=== PATIENT | male | born 1955 | race American Indian/Alaskan Native ===

== ENCOUNTER 2017-08-04 04:12 | Inpatient (IN) | payer SELFPAY ==
[2017-08-04] MEDS ORDERED: ASPIRIN PO ONE (05:19)
[2017-08-04 06:03] LABS: Basophils % (Auto) 0.6 % (0.0-1.8); Eosinophils # (Auto) 0.2 K/mm3 (0.0-0.4); Eosinophils % (Auto) 4.7 % (0.0-4.3); Hematocrit 43.1 % (30.3-42.9); Hemoglobin 13.7 gm/dl (10.1-14.3); Lymphocytes % (Auto) 40.9 % (13.4-35.0); Mean Corpuscular HGB Conc 32 % (30-34); Mean Corpuscular Hemoglobin 27 pg (28-32); Mean Corpuscular Volume 85 fl (79-97); Monocytes # (Auto) 0.5 K/mm3 (0.0-0.8); Monocytes % (Auto) 9.3 % (0.0-7.3); Platelet Count 242 K/mm3 (140-440); Red Blood Count 5.05 M/mm3 (3.65-5.03); Red Cell Distribution Width 14.2 % (13.2-15.2)
[2017-08-04 06:12] LABS: BUN/Creatinine Ratio 17; Blood Urea Nitrogen 15 mg/dL (7-17); Calcium 9.4 mg/dL (8.4-10.2); Hemolysis Index 35
--- NOTE | 2017-08-04 10:31 | XRay Report ---
AP CHEST: HISTORY: chest pain AP view of the chest demonstrates a normal mediastinal and cardiac contour with clear lungs and normal bony and soft tissue structures. IMPRESSION: Unremarkable AP chest.
--- NOTE | 2017-08-04 10:55 | Emergency Department Report ---
ED Chest Pain HPI - General Chief Complaint: Chest Pain Stated Complaint: CP Time Seen by Provider: 08/04/17 10:06 Source: patient Mode of arrival: Ambulatory Limitations: No Limitations - History of Present Illness Initial Comments: 61-year-old male presents to the emergency department with complaint of some intermittent left-sided chest pains have been going on for the past 6-7 months. He denies any shortness of breath, nausea, vomiting, back pain or diaphoresis. He has a past medical history of hypertension. He also has history of seizures but has not had one in 2 years and does not appear to be on any medications for them. He has a primary care physician but cannot currently remember the name. He did not take anything for his symptoms prior to presentation. Currently he is asymptomatic but says that it occurs intermittently and sometimes it will "waking from sleep." No recent travel or sick contacts at home. No known aggravating or alleviating factors. He denies any tobacco or illicit drug use. - Related Data Home Medications Medication Instructions Recorded Confirmed Last Taken Aspirin [Aspirin BABY CHEW TAB] 81 mg PO QDAY 08/04/17 08/04/17 08/03/17 Ergocalciferol (Vitamin D2) 2,000 unit PO DAILY 08/04/17 08/04/17 08/03/17 [Vitamin D2] Losartan Potassium [Cozaar] 50 mg PO DAILY 08/04/17 08/04/17 08/03/17 [place]-3 Fatty Acids/Fish Oil [Fish 1 each PO DAILY 08/04/17 08/04/17 08/03/17 Oil] lamoTRIgine [LaMICtal] 100 mg PO BID 08/04/17 08/04/17 08/03/17 Allergies Allergy/AdvReac Type Severity Reaction Status Date / Time No Known Allergies Allergy Verified 08/04/17 10:45 Heart Score - HEART Score History: Slightly suspicious EKG: Non-specific Age: 45-65 Risk factors: 1-2 risk factors Troponin: < normal limit HEART Score: 3 - Critical Actions Critical Actions: 0-3 pts:0.9-1.7%risk of adverse cardiac event.Candidate for discharge ED Review of Systems ROS: Stated complaint: CP Other details as noted in HPI Comment: All other systems reviewed and negative Constitutional: denies: chills, fever Eyes: denies: eye pain, eye discharge, vision change ENT: denies: ear pain, throat pain Respiratory: denies: cough, shortness of breath, wheezing Cardiovascular: chest pain. denies: palpitations Gastrointestinal: denies: abdominal pain, nausea, diarrhea Genitourinary: denies: urgency, dysuria Musculoskeletal: denies: back pain, joint swelling, arthralgia Skin: denies: rash, lesions Neurological: denies: headache, weakness, paresthesias ED Past Medical Hx - Past Medical History Previous Medical History?: Yes Hx Hypertension: Yes Hx Seizures: Yes (last seizure 2014) - Surgical History Past Surgical History?: No - Social History Smoking Status: Never Smoker Substance Use Type: None - Medications Home Medications: Home Medications Medication Instructions Recorded Confirmed Last Taken Type Aspirin [Aspirin BABY CHEW TAB] 81 mg PO QDAY 08/04/17 08/04/17 08/03/17 History Ergocalciferol (Vitamin D2) 2,000 unit PO DAILY 08/04/17 08/04/17 08/03/17 History [Vitamin D2] Losartan Potassium [Cozaar] 50 mg PO DAILY 08/04/17 08/04/17 08/03/17 History [place]-3 Fatty Acids/Fish Oil [Fish 1 each PO DAILY 08/04/17 08/04/17 08/03/17 History Oil] lamoTRIgine [LaMICtal] 100 mg PO BID 08/04/17 08/04/17 08/03/17 History ED Physical Exam - General Limitations: No Limitations - Other Other exam information: GENERAL: The patient is well-developed well-nourished. HENT: Normocephalic. Atraumatic. Patient has moist mucous membranes. EYES: Extraocular motions are intact. Pupils equal reactive to light bilaterally. NECK: Supple. Trachea is midline. CHEST/LUNGS: Clear to auscultation. Chest pain is not reproducible to palpation of the chest wall. There is no respiratory distress noted. HEART/CARDIOVASCULAR: Regular. There is no tachycardia. There is no murmur. ABDOMEN: Abdomen is soft, nontender. Patient has normal bowel sounds. There is no abdominal distention. SKIN: Skin is warm and dry. NEURO: The patient is awake, alert, and oriented. The patient is cooperative. The patient has no focal neurologic deficits. The patient has normal speech. MUSCULOSKELETAL: No tenderness to palpation or deformity. Full range of motion. ED Course Vital Signs 08/04/17 08/04/17 08/04/17 05:12 10:07 14:06 Temperature 98.5 F Pulse Rate 69 56 L 70 Respiratory 20 16 16 Rate Blood Pressure 148/91 Blood Pressure 146/56 153/92 [Left] O2 Sat by Pulse 97 96 100 Oximetry WALDO score - Wal[place] Score Age > 65: (0) No Aspirin use within the Past 7 Days: (0) No 3 or more CAD Risk Factors: (0) No 2 or more Angina events in past 24 hrs: (1) Yes Known CAD with more than 50% Stenosis: (0) No Elevated Cardiac Markers: (0) No ST Deviation Greater than 0.5mm: (0) No WALDO Score: 1 ED Medical Decision Making - Lab Data Result diagrams: 08/04/17 05:37 08/04/17 05:37 - EKG Data -: EKG Interpreted by Me EKG shows normal: sinus rhythm, axis, intervals, QRS complexes (LVH, early repolarization), ST-T waves Rate: normal - EKG Data When compared to previous EKG there are: previous EKG unavailable Interpretation: other (sinus rhythm, LVH, early repolarization) - Radiology Data Radiology results: image reviewed interpreted by me: Chest x-ray does not show any acute process. There are no pleural effusions, obvious pneumonia and there is no pneumothorax. - Medical Decision Making Patient presents with some left-sided chest pain that has been going on for the past few days but is more of an acute on chronic condition. EKG is not showing any obvious ST elevation MD but it does show some LVH with some repolarization abnormalities. Negative troponins 2 thus far. Chest x-ray does not show any acute process. The patient does not appear to have ever had a full cardiac workup including a stress test and for this reason I plan to admit him to the hospital for further evaluation and treatment. He has been accepted for admission by the hospitalist, Dr. Olson - Differential Diagnosis MD, PE, Costochondritis, Pneumonia Critical Care Time: No Critical care attestation.: If time is entered above; I have spent that time in minutes in the direct care of this critically ill patient, excluding procedure time. ED Disposition Clinical Impression: Chest pain Qualifiers: Chest pain type: unspecified Qualified Code(s): R07.9 - Chest pain, unspecified Hypertension Qualifiers: Hypertension type: essential hypertension Qualified Code(s): I10 - Essential ( primary) hypertension Disposition: DC-09 OP ADMIT IP TO THIS HOSP Is pt being admited?: Yes Condition: Stable Time of Disposition: 14:58
--- NOTE | 2017-08-04 13:42 | Consultation ---
History of Present Illness Consult date: 08/04/17 Requesting physician: DAVE CARL Consult reason: chest pain History of present illness: The pt is a 61-year-old male with a past medical history significant for seizures and HTN. He is previously unknown to our practice. He presented with complaints of chest pain for the past 3-4 weeks. He describes his chest pain as a left-sided, nonexertional, aching pain which sometimes radiates into his upper back. The pain has no clear aggravating or alleviating factors. He denies any fever, chills, cough, SOB, palpitations, n/v, diaphoresis, dizziness or syncope. He has a primary care physician but cannot currently remember the name. He denies any prior cardiac evaluation. 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 He denies any tobacco or illicit drug use. Past History Past Medical History: hypertension, seizures Past Surgical History: hernia repair Social history: denies: smoking, alcohol abuse, prescription drug abuse Family history: no significant family history Medications and Allergies Allergies Allergy/AdvReac Type Severity Reaction Status Date / Time No Known Allergies Allergy Verified 08/04/17 10:45 Home Medications Medication Instructions Recorded Confirmed Last Taken Type Aspirin [Aspirin BABY CHEW TAB] 81 mg PO QDAY 08/04/17 08/04/17 08/03/17 History Ergocalciferol (Vitamin D2) 2,000 unit PO DAILY 08/04/17 08/04/17 08/03/17 History [Vitamin D2] Losartan Potassium [Cozaar] 50 mg PO DAILY 08/04/17 08/04/17 08/03/17 History [place]-3 Fatty Acids/Fish Oil [Fish 1 each PO DAILY 08/04/17 08/04/17 08/03/17 History Oil] lamoTRIgine [LaMICtal] 100 mg PO BID 08/04/17 08/04/17 08/03/17 History Active Meds: Active Medications Heparin Sodium (Porcine) (Heparin) 5,000 unit SUB-Q Q8HR ABDI Review of Systems Constitutional: no weight loss, no weight gain, no fever, no chills, no sweats Ears, nose, mouth and throat: no ear pain, no nose pain, no sinus pressure, no sinus pain Cardiovascular: chest pain, high blood pressure, no orthopnea, no palpitations, no rapid/irregular heart beat, no edema, no syncope, no lightheadedness, no shortness of breath, no dyspnea on exertion, no leg edema, no decreased exercise tolerance Respiratory: no cough, no congestion, no wheezing, no pain on inspiration Gastrointestinal: no abdominal pain, no nausea, no vomiting, no diarrhea, no constipation, no change in bowel habits Genitourinary Male: no dysuria, no hematuria, no flank pain, no discharge, no urinary frequency, no urinary hesitancy Musculoskeletal: no neck stiffness, no neck pain, no shooting arm pain, no arm numbness/tingling, no low back pain, no shooting leg pain, no leg numbness/ tingling, no redness of joints Integumentary: no rash, no pruritis, no redness, no sores, no wounds Neurological: seizures, no head injury, no paralysis, no weakness, no parathesias, no numbness, no tingling, no syncope Psychiatric: no anxiety Endocrine: no cold intolerance, no heat intolerance Hematologic/Lymphatic: no easy bruising, no easy bleeding, no lymphadenopathy Allergic/Immunologic: no urticaria, no wheezing, no persistent infections Physical Examination Vital Signs Temp Pulse Resp BP Pulse Ox 98.5 F 69 20 148/91 97 08/04/17 05:12 08/04/17 05:12 08/04/17 05:12 08/04/17 05:12 08/04/17 05:12 General appearance: no acute distress HEENT: Positive: PERRL, Normocephaly, Mucus Membranes Moist Neck: Positive: neck supple, trachea midline Cardiac: Positive: Reg Rate and Rhythm, S1/S2 Lungs: Positive: clear to auscultation Neuro: Positive: Grossly Intact Abdomen: Positive: Soft. Negative: Tender Skin: Positive: Other (bruise on left tibia d/t falling off ladder at work last week). Negative: Rash Musculoskeletal: No Fluid Collection, Normal Range of Motion Extremities: Absent: edema Results 08/04/17 05:37 08/04/17 05:37 CBC 08/04/17 Range/Units 05:37 WBC 5.0 (4.5-11.0) K/mm3 RBC 5.05 H (3.65-5.03) M/mm3 Hgb 13.7 (10.1-14.3) gm/dl Hct 43.1 H (30.3-42.9) % Plt Count 242 (140-440) K/mm3 Lymph # 2.0 (1.2-5.4) K/mm3 [place] # 0.5 (0.0-0.8) K/mm3 Eos # 0.2 (0.0-0.4) K/mm3 Baso # 0.0 (0.0-0.1) K/mm3 Comprehensive Metabolic Panel 08/04/17 Range/Units 05:37 Sodium 140 (137-145) mmol/L Potassium 4.2 (3.6-5.0) mmol/L Chloride 99.4 (98-107) mmol/L Carbon Dioxide 26 (22-30) mmol/L BUN 15 (7-17) mg/dL Creatinine 0.9 (0.7-1.2) mg/dL Glucose 95 (65-100) mg/dL Calcium 9.4 (8.4-10.2) mg/dL - Imaging and Cardiology Echo: pending EKG: report reviewed, image reviewed EKG interpretations - Telemetry EKG Rhythm: Sinus Rhythm - EKG Sinus rhythms and dysrhythmias: sinus rhythm Chamber hypertrophy or enlargement: left ventricular hypertro Repolarization changes or abnormalities: repolarization abn secondary to ventricular hypertrophy Assessment and Plan Assessment: Chest pain, atypical - ECG with no acute ischemic changes; troponin negative for AMI x 2 sets Abnormal ECG - 2/2 LVH with repolarization abnormalities HTN H/o seizure d/o Plan: Obtain echo. Obtain lipid panel in AM. Plan for treadmill MPI stress test in AM. NPO after MN. Assessment and plan reviewed with pt at bedside. The patient has been seen in conjunction with Dr. Taveras who agrees with the assessment and plan of care.
[2017-08-04] MEDS: HEPARIN SUB-Q SCH ×2 (14:02→22:37)
[2017-08-04] MEDS ORDERED: TYLENOL PO PRN (18:58)
[2017-08-04] MEDS ORDERED: TYLENOL PO ONE (19:00)
[2017-08-04] MEDS ORDERED: TYLENOL ONE (19:02)
[2017-08-04] MEDS ORDERED: NON-FORMULARY (Ergocalciferol (Vitamin D2) [Vitamin D2] 2,000 UNIT) PO SCH (21:45)
--- NOTE | 2017-08-04 21:49 | Event Note ---
Date: 08/04/17 See dictated H/p in reports Chest pain r/o UT Sz Disorder HTN Vit D deficiency
[2017-08-04] MEDS: FISH OIL PO SCH (22:36)
[2017-08-04] MEDS: LaMICtal PO SCH (22:36)
[2017-08-04] MEDS: BABY ASPIRIN PO SCH (22:36)
[2017-08-04] MEDS: COZAAR PO SCH (22:38)
--- NOTE | 2017-08-04 22:57 | History and Physical Report ---
CHIEF COMPLAINT: Left-sided chest pain for the past 6-7 months. HISTORY OF PRESENT ILLNESS: A 61-year-old -[place] male with history of hypertension and vitamin D deficiency, seizure disorder, comes in for left-sided chest pain, intermittent for the last 6-7 months, more so for the last 2 days. No shortness of breath, no diaphoresis, no palpitations. The patient did not have any seizures in the last 2 years. He also has chest pain, more on exertion. No recent travel. No recent shortness of breath on exertion. No orthopnea. No PND attacks. PAST MEDICAL HISTORY: Past medical history is significant for hypertension, seizure disorder. No coronary artery disease as far as history is concerned. PAST SURGICAL HISTORY: None. SOCIAL HISTORY: He does not smoke. No alcohol, no recreational drugs. FAMILY HISTORY: Hypertension. CURRENT MEDICATIONS: Aspirin 81 mg once a day, vitamin D 2000 units once a day, losartan 50 mg once a day, fish oil once a day, Lamictal 100 mg twice a day. REVIEW OF SYSTEMS: Significant for left-sided chest pain, intermittent in nature for the last 6-7 months, more so for the last 2 days, some shortness of breath. No palpitations, no diaphoresis. A 14-point review of systems is done, otherwise negative. PHYSICAL EXAMINATION: GENERAL: Middle-aged male, cooperative during examination. VITAL SIGNS: Blood pressure is 153/92, temperature is 98.1. Repeat blood pressure is 108/67, respiratory rate is 18, sats at 97%. HEENT: Unremarkable. Pupils are equal and reactive. NECK: Supple, no lymphadenopathy, no thyromegaly. LUNGS: Clear to auscultation and percussion. Good air entry. CARDIOVASCULAR: S1, S2 heard. No gallop, no murmur, no rub; apical impulse in left fifth intercostal space and midclavicular line. ABDOMEN: Soft and benign. No hepatosplenomegaly, no guarding, no rigidity. Hernial orifices are normal. EXTREMITIES: Good pedal pulses. No pedal edema. CENTRAL NERVOUS SYSTEM: Alert and oriented x 4, nonfocal exam. SKIN: Normal. LABORATORY AND DIAGNOSTIC DATA: Significant for white count of 5000, H and H is 13.7 and 43.1, platelet count is 242,000. Sodium is 140, potassium is 4.2, BUN and creatinine 15 and 0.9. Calcium is 9.4. EKG shows sinus rhythm, heart rate of 63 per minute, left ventricular hypertrophy, nonspecific ST-T wave changes. Chest x-ray: No acute findings. ASSESSMENT AND PLAN: 1. Left atypical chest pain. The patient to get Lexiscan, serial cardiac enzymes, and echocardiogram; also lipid profile ordered. 2. Seizure disorder, by history. Continue Lamictal. 3. Vitamin D deficiency. Continue vitamin D. 4. Left ventricular hypertrophy. Echocardiogram ordered for ejection fraction and valve function. 5. Deep venous thrombosis prophylaxis. Heparin/Lovenox ordered. JOB# [id number] VSM/NTS
[2017-08-05] MEDS: HEPARIN SUB-Q SCH ×2 (06:12→14:58)
[2017-08-05 06:37] LABS: BUN/Creatinine Ratio 15; Blood Urea Nitrogen 15 mg/dL (9-20); Calcium 9.3 mg/dL (8.4-10.2); Chol/HDL Ratio 4.51 %; HDL Cholesterol 33 mg/dL (40-59); Hemolysis Index 7; LDL Cholesterol,Direct 93 mg/dL (50-130)
[2017-08-05] MEDS ORDERED: VITAMIN D3 PO SCH (10:00)
--- NOTE | 2017-08-05 12:04 | Progress Note ---
Assessment and Plan Assessment: Chest pain, atypical - currently resolved; ECG with no acute ischemic changes; troponin negative for AMI x 2 sets Abnormal ECG - 2/2 LVH with repolarization abnormalities HTN H/o seizure d/o Plan: Stress MPI this AM negative for ischemia, EF 71%. Currently stable cardiac status. Pt may discharge home from cardiology standpoint. Assessment and plan reviewed with pt at bedside. The patient has been seen in conjunction with Dr. Taveras who agrees with the assessment and plan of care. Subjective Date of service: 08/05/17 Principal diagnosis: cp Interval history: pt seen in stress lab, no current complaints. Objective Last Vital Signs Temp 98.0 F 08/05/17 03:46 Pulse 75 08/05/17 03:46 Resp 18 08/05/17 03:46 BP 117/71 08/05/17 03:46 Pulse Ox 96 08/05/17 03:46 - Physical Examination General: No Apparent Distress HEENT: Positive: PERRL, Normocephaly, Mucus Membranes Moist Neck: Positive: neck supple, trachea midline Cardiac: Positive: Reg Rate and Rhythm, S1/S2 Lungs: Positive: clear to auscultation Neuro: Positive: Grossly Intact Abdomen: Positive: Soft. Negative: Tender Skin: Positive: Other (bruise on left tibia d/t falling off ladder at work last week). Negative: Rash Musculoskeletal: No Fluid Collection, Normal Range of Motion Extremities: Absent: edema - Labs and Meds Lipids 08/05/17 Range/Units 05:21 Triglycerides 117 (2-149) mg/dL Cholesterol 149 (50-199) mg/dL HDL Cholesterol 33 L (40-59) mg/dL Cholesterol/HDL Ratio 4.51 % Comprehensive Metabolic Panel 08/05/17 Range/Units 05:21 Sodium 143 (137-145) mmol/L Potassium 4.2 (3.6-5.0) mmol/L Chloride 102.1 (98-107) mmol/L Carbon Dioxide 29 (22-30) mmol/L BUN 15 (9-20) mg/dL Creatinine 1.0 (0.8-1.5) mg/dL Glucose 97 (75-100) mg/dL Calcium 9.3 (8.4-10.2) mg/dL - Imaging and Cardiology EKG: report reviewed, image reviewed Echo: pending - EKG Sinus rhythms and dysrhythmias: sinus rhythm Chamber hypertrophy or enlargement: left ventricular hypertro Repolarization changes or abnormalities: repolarization abn secondary to ventricular hypertrophy
--- NOTE | 2017-08-05 14:35 | Discharge Summary ---
Providers - Providers Date of Admission: 08/04/17 13:32 Date of discharge: 08/05/17 Attending physician: YADIRA DIAZ Primary care physician: DAVID DOSHI Hospitalization Condition: Stable Pertinent studies: Unremarkable AP chest. Stress MPI this AM negative for ischemia Echocardiogram showed EF of 60-65% with a normal left ventricular systolic function Hospital course: Patient is a 61-year-old -[place] male with history of hypertension, vitamin D deficiency, seizure disorder comes in for left-sided chest pain which has been intermittent for the past 6-7 months with increasing intensity over the prior 2 days to admission -Patient's cardiac enzymes were negative along with stress test. -Patient was treated with analgesics and resumed home medications. 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 Discharge diagnoses Atypical chest pain likely due to costochondritis Hypertension which is chronic Seizure disorder chronic Vitamin D deficiency likely due to poor by mouth intake and poor absorption DVT prophylaxis Disposition: DC- TO HOME OR SELFCARE Time spent for discharge: 31 minutes Core Measure Documentation - Palliative Care Palliative Care/ Comfort Measures: Not Applicable - Core Measures Any of the following diagnoses?: none Exam - Constitutional Vitals: Temp Pulse Resp BP Pulse Ox 98.0 F 71 18 117/71 96 08/05/17 03:46 08/05/17 14:18 08/05/17 03:46 08/05/17 03:46 08/05/17 03:46 General appearance: Present: no acute distress, well-nourished - EENT Eyes: Present: PERRL ENT: hearing intact, clear oral mucosa - Neck Neck: Present: supple, normal ROM - Respiratory Respiratory effort: normal Respiratory: bilateral: CTA - Cardiovascular Rhythm: regular Heart Sounds: Present: S1 & S2. Absent: rub, click - Extremities Extremities: pulses symmetrical, No edema Peripheral Pulses: within normal limits - Abdominal General gastrointestinal: Present: soft, non-tender, non-distended, normal bowel sounds - Integumentary Integumentary: Present: clear, warm, dry - Musculoskeletal Musculoskeletal: gait normal, strength equal bilaterally - Psychiatric Psychiatric: appropriate mood/affect, intact judgment & insight - Neurologic Neurologic: CNII-XII intact, moves all extremities - Allied Health Allied health notes reviewed: nursing Plan Activity: advance as tolerated, fall precautions Diet: low fat, low cholesterol, low salt Follow up with: PRIMARY CARE, [Referring] - 3-5 Days
[2017-08-05] MEDS: BABY ASPIRIN PO SCH (14:50)
[2017-08-05] MEDS: COZAAR PO SCH (14:52)
[2017-08-05] MEDS: FISH OIL PO SCH (14:55)
[2017-08-05] MEDS: LaMICtal PO SCH (14:56)
[2017-08-05 20:17] VITALS: BP 130/79
== END 2017-08-05 19:20 | disposition home or self-care (01) | DRG 206 ==
LOC: EDSEX → ED 04:12 → 4A 13:32
PROVIDERS: ADMIT Internal Medicine; ATTEND Internal Medicine
DX: M94.0 Chondrocostal junction syndrome [Tietze] (principal); I10 Essential (primary) hypertension; G40.909 Epilepsy, unspecified, not intractable, without status epilepticus; I51.7 Cardiomegaly; E55.9 Vitamin D deficiency, unspecified; Z79.82 Long term (current) use of aspirin; Z79.899 Other long term (current) drug therapy; Z82.49 Family history of ischemic heart disease and other diseases of the circulatory system
CPT/HCPCS: 36415; 71045; 78452; 80048; 80061; 84484; 85025; 93005; 93010; 93017; 93306; A9502; J1644

== ENCOUNTER 2018-09-09 23:55 | Emergency (ER) | payer OTHER ==
[2018-09-10] MEDS ORDERED: TYLENOL PO ONE (00:43)
[2018-09-10] MEDS ORDERED: TYLENOL ONE (00:46)
[2018-09-10] MEDS ORDERED: IBUPROFEN PO ONE (03:04)
--- NOTE | 2018-09-10 03:06 | Emergency Department Report ---
ED General Adult HPI - General Chief complaint: High BP Stated complaint: HEADACHES HEAD PAIN FEVER Time Seen by Provider: 09/10/18 03:02 Source: patient Mode of arrival: Ambulatory Limitations: No Limitations - History of Present Illness Initial comments: 62-year-old -[place] male presents to the emergency room for elevated blood pressure, headache and fever 2 days. Patient reports he has a history of hypertension and is currently taken medication. Patient reports that he had a temperature max of 102. Patient reports he took Tylenol at 10 PM. Patient reports he missed his appointment with his primary care provider yesterday. Patient admits to cough and runny nose nasal congestion denies any sneezing. Patient reports is drinking fluids. Patient admits to getting his flu vaccination. Patient denies any smoking no drug use. Patient reports a past medical history of seizures last seizure was 2014. -: days(s) (2) Location: head Severity scale (0 -10): 10 Quality: aching Consistency: constant Improves with: none Worsens with: none Associated Symptoms: headaches Treatments Prior to Arrival: other (Tylenol at 10 PM) - Related Data Home Medications Medication Instructions Recorded Confirmed Last Taken Aspirin [Aspirin BABY CHEW TAB] 81 mg PO QDAY 08/04/17 08/04/17 08/03/17 Ergocalciferol (Vitamin D2) 2,000 unit PO DAILY 08/04/17 08/04/17 08/03/17 [Vitamin D2] Losartan Potassium [Cozaar] 50 mg PO DAILY 08/04/17 08/04/17 08/03/17 Bristol-3 Fatty Acids/Fish Oil [Fish 1 each PO DAILY 08/04/17 08/04/17 08/03/17 Oil] lamoTRIgine [LaMICtal] 100 mg PO BID 08/04/17 08/04/17 08/03/17 Previous Rx's Medication Instructions Recorded Last Taken Type Cetirizine HCl [ZyrTEC] 10 mg PO QDAY #30 capsule 09/10/18 Unknown Rx Allergies Allergy/AdvReac Type Severity Reaction Status Date / Time No Known Allergies Allergy Verified 08/04/17 10:45 ED Review of Systems ROS: Stated complaint: HEADACHES HEAD PAIN FEVER Other details as noted in HPI Constitutional: fever Eyes: denies: eye pain, eye discharge, vision change ENT: congestion, other (nasal congestion, runny nose) Respiratory: cough Cardiovascular: denies: chest pain, palpitations Endocrine: no symptoms reported Gastrointestinal: denies: abdominal pain, nausea, diarrhea Genitourinary: denies: urgency, dysuria Musculoskeletal: denies: back pain, joint swelling, arthralgia Skin: denies: rash, lesions Neurological: headache Psychiatric: denies: anxiety, depression Hematological/Lymphatic: denies: easy bleeding, easy bruising ED Past Medical Hx - Past Medical History Hx Hypertension: Yes Hx Congestive Heart Failure: No Hx Diabetes: No Hx Seizures: Yes (last seizure 2014) Hx Asthma: No Hx COPD: No - Surgical History Past Surgical History?: No - Social History Smoking Status: Never Smoker Substance Use Type: None - Medications Home Medications: Home Medications Medication Instructions Recorded Confirmed Last Taken Type Aspirin [Aspirin BABY CHEW TAB] 81 mg PO QDAY 08/04/17 08/04/17 08/03/17 History Ergocalciferol (Vitamin D2) 2,000 unit PO DAILY 08/04/17 08/04/17 08/03/17 History [Vitamin D2] Losartan Potassium [Cozaar] 50 mg PO DAILY 08/04/17 08/04/17 08/03/17 History Bristol-3 Fatty Acids/Fish Oil [Fish 1 each PO DAILY 08/04/17 08/04/17 08/03/17 History Oil] lamoTRIgine [LaMICtal] 100 mg PO BID 08/04/17 08/04/17 08/03/17 History Cetirizine HCl [ZyrTEC] 10 mg PO QDAY #30 capsule 09/10/18 Unknown Rx ED Physical Exam - General Limitations: No Limitations General appearance: alert, in no apparent distress - Head Head exam: Present: atraumatic, normocephalic - Neurological Exam Neurological exam: Present: alert, oriented X3 - Expanded Neurological Exam Expanded Cranial nerves: EOM's Intact: Normal, Gag Reflex: Normal, Tongue Deviation: Normal, Nystagmus: Normal, Facial Sensation: Normal, Facial Palsy with Forehead Movement: Normal, Facial Palsy without Forehead Movement: Normal Cerebellar function: Finger to Nose: Normal, Heel to Paiz: Normal, Romberg: Normal Upper motor neuron: Shantanu Neglect: Normal, Pronator Drift: Normal, Sensory Extinction: Normal Sensory exam: Upper Extremity Light Touch: Normal, Upper Extremity Pin Prick: Normal, Upper Extremity Temperature: Normal, UE 2 Point Discrimination: Normal, Lower Extremity Light Touch: Normal, Lower Extremity Pin Prick: Normal Motor strength exam: RUE: 5, LUE: 5, RLE: 5, LLE: 5 Best Eye Response (Lamont): (4) open spontaneously Best Motor Response (Lamont): (6) obeys commands Best Verbal Response (Sosa): (5) oriented Sosa Total: 15 - Psychiatric Psychiatric exam: Present: normal affect, normal mood - Skin Skin exam: Present: warm, dry, intact, normal color. Absent: rash ED Course Vital Signs 09/10/18 09/10/18 00:05 03:35 Temperature 98.9 F Pulse Rate 99 H Respiratory 18 18 Rate Blood Pressure 150/87 O2 Sat by Pulse 98 Oximetry ED Medical Decision Making - Medical Decision Making Patient has been evaluated by this provider in fast track. Patient was given Tylenol in triage and prescribed ibuprofen in fast track. Patient's blood pressure is 150/87 which is fine for the emergency room setting. Patient is to continue taking his blood pressure medication Cozaar 50 mg. Runny nose nasal congestion and cough this can also cause headaches. Patient be given a prescription for Zyrtec's to take daily and follow-up with [facility] which patient reports he has appointment on the September 2018 Critical care attestation.: If time is entered above; I have spent that time in minutes in the direct care of this critically ill patient, excluding procedure time. ED Disposition Clinical Impression: Allergic rhinitis Qualifiers: Allergic rhinitis trigger: unspecified Allergic rhinitis seasonality: unspecified Qualified Code(s): J30.9 - Allergic rhinitis, unspecified Hypertension Qualifiers: Hypertension type: unspecified Qualified Code(s): I10 - Essential (primary) hypertension Disposition: - TO HOME OR SELFCARE Is pt being admited?: No Does the pt Need Aspirin: No Condition: Stable Instructions: Allergic Rhinitis (ED), Hypertension (ED) Additional Instructions: Take medication as prescribed. Please continue taking her hypertensive medication and follow-up with her primary care provider at [facility]. Prescriptions: Cetirizine HCl [ZyrTEC] 10 mg PO QDAY #30 capsule Referrals: CARL GRUBBS MD [Primary Care Provider] - 3-5 Days
[2018-09-10 04:22] VITALS: BP 142/88
== END 2018-09-10 04:20 | disposition home or self-care (01) ==
LOC: ED 23:55
DX: J30.9 Allergic rhinitis, unspecified (principal); I10 Essential (primary) hypertension
CPT/HCPCS: 99282